=== PATIENT | male | born 1990 | race Caucasian/White ===

== ENCOUNTER 2017-04-23 09:28 | Emergency (ER) | payer SELFPAY ==
[2017-04-23] MEDS: CEPHALEXIN 500 MG CAP PO (10:49)
[2017-04-23] MEDS: ADACEL/BOOSTRIX VACCINE (DIPHTH/PERTUSS/ACELL/TETANUS)0.5ML SYR (90715) IM (10:50)
== END 2017-04-23 12:28 | disposition home or self-care (01) ==
LOC: M ED 09:28
DX: S02.401A Maxillary fracture, unspecified side, initial encounter for closed fracture (principal); S02.2XXA Fracture of nasal bones, initial encounter for closed fracture; S52.125A Nondisplaced fracture of head of left radius, initial encounter for closed fracture; S52.615A Nondisplaced fracture of left ulna styloid process, initial encounter for closed fracture; S50.311A Abrasion of right elbow, initial encounter; S30.810A Abrasion of lower back and pelvis, initial encounter; V86.95XA Unspecified occupant of 3- or 4- wheeled all-terrain vehicle (ATV) injured in nontraffic accident, initial encounter; Y92.9 Unspecified place or not applicable; Y93.9 Activity, unspecified; J45.909 Unspecified asthma, uncomplicated; F17.200 Nicotine dependence, unspecified, uncomplicated; Z88.6 Allergy status to analgesic agent; Z88.8 Allergy status to other drugs, medicaments and biological substances
CPT/HCPCS: 90715